=== PATIENT | female | born 1985 | race Caucasian/White ===

== ENCOUNTER 2018-03-24 22:26 | Emergency (ER) | payer BC | END 2018-03-25 03:10 | disposition home or self-care (01) | LOC: FTE 22:26 | DX: S92.535A Nondisplaced fracture of distal phalanx of left lesser toe(s), initial encounter for closed fracture (principal); W22.8XXA Striking against or struck by other objects, initial encounter; Y92.9 Unspecified place or not applicable | CPT/HCPCS: 73660; 99283-25 ==

== ENCOUNTER 2018-09-03 10:16 | Emergency (ER) | payer BC | END 2018-09-03 14:24 | disposition home or self-care (01) | LOC: FTE 10:16 | DX: R07.89 Other chest pain (principal) | CPT/HCPCS: 71046; 93005; 99284-25 ==